=== PATIENT | female | born 1980 ===

== ENCOUNTER 2017-05-07 18:45 | Emergency (ER) | payer OTHER ==
[2017-05-07 19:43] VITALS: PULSE 70; RESP 18; TEMP 97.9
--- NOTE | 2017-05-07 19:51 | C.PDOC ---
History Of Present Illness 37 yo female come in for evaluation of Left knee pain gradually developed for past month. Pt reports, pain gradually worsen overtime, more in back of knee, non-radiating and worse with movement. Noted some swelling in medial aspect. Otherwise, pt denies known direct trauma or injury, fever, chills, denies deformity, weakness, sensory or vascular deficits to Left knee. Ambulate to EDm wears knee brace. Time Seen by Provider: 05/07/17 19:47 Chief Complaint (Nursing): Lower Extremity Problem/Injury History Per: Patient Onset/Duration Of Symptoms: Gradual Current Symptoms Are (Timing): Worse Past Medical History Reviewed: Historical Data, Nursing Documentation, Vital Signs Vital Signs: Last Vital Signs Temp 97.9 F 05/07/17 19:39 Pulse 70 05/07/17 19:39 Resp 18 05/07/17 19:39 BP 106/71 05/07/17 19:39 Pulse Ox 99 05/07/17 19:51 - Medical History PMH: No Chronic Diseases Surgical History: No Surg Hx Family History: States: No Known Family Hx - Social History Hx Alcohol Use: No Hx Substance Use: No - Immunization History Hx Tetanus Toxoid Vaccination: No Hx Influenza Vaccination: No Hx Pneumococcal Vaccination: No Review Of Systems Except As Marked, All Systems Reviewed And Found Negative. Constitutional: Negative for: Fever, Chills ENT: Negative for: Throat Pain Musculoskeletal: Positive for: Other (knee pain) Skin: Negative for: Bruising Neurological: Negative for: Weakness, Numbness Physical Exam - Physical Exam Appears: Well, Non-toxic, No Acute Distress Skin: Normal Color, Warm, No Rash, No Ecchymosis Extremity: Tenderness (moderate tenderness posterior aspect left knee, trace swelling noted medial aspect Left knee. Mild discomfort to Left knee flexion. NO neurovascular deficits, no clelulitis.), No Calf Tenderness, Capillary Refill (less than 2sec to left foot), No Deformity Neurological/Psych: Oriented x3, Normal Speech, Normal Motor, Normal Sensation, Normal Reflexes ED Course And Treatment O2 Sat by Pulse Oximetry: 99 - Other Rad Left knee X-Ray: Interpreted by Me, Viewed By Me Interpretation: mild DJD w/calcification Progress Note: On re-evaluation, pt is afebrile, hemodynamicaly stable. non- toxic. Ambulatory in ED with stable gait. Left knee; exam c/w knee arthralgia r/o arthritis. NO cellulitis, no neurovascular deficits, no calf tenderness. neurologicaly intact. Imaging review and appears without acute abnormalities. Pt has clinical findings c/w back strain. Analgesics offered, pt sts, " took Advil with mild improvement in pain". Pt advised to continue wear knee brace. ref. to f/u with Ortho in 2-3 days for re-eval. return to ED if any worsening or new changes. Disposition Counseled Patient/Family Regarding: Studies Performed, Diagnosis, Need For Followup, Rx Given - Disposition Referrals: [facility] [Outside] [facility] [Outside] [facility] [Outside] Disposition: HOME/ ROUTINE Disposition Time: 20:15 Condition: STABLE Additional Instructions: KNee brace Take medication as prescribed light duty to left knee Follow up with Orthopedist in 2-3 days for re-evaluation. Return to ED if any worsening or new changes. Prescriptions: Ibuprofen [Motrin Tab] 600 mg PO Q6 #20 tab Instructions: Arthralgia (ED), Knee Pain (ED) Forms: [facility] (Irish) Print Language: MALAWIAN - Clinical Impression Clinical Impression: Arthralgia of knee
[2017-05-07 20:44] VITALS: BP 110/68; O2SAT 98
--- NOTE | 2017-05-08 10:20 | RAD ---
PROCEDURE: Left Knee Radiographs. HISTORY: COMPARISON: None available. FINDINGS: BONES: No acute displaced fracture. Small suprapatellar and infrapatellar enthesophytes. Faint 3.2 x 2.3 cm centrally located sclerotic rounded opacity within the distal femur. JOINTS: No dislocation. JOINT EFFUSION: Moderate suprapatellar joint effusion. OTHER FINDINGS: None. IMPRESSION: Moderate suprapatellar joint effusion. Faint 3.2 x 2.3 cm centrally located sclerotic rounded opacity within the distal femur. Degenerative changes. Study has been marked for PA review.
== END 2017-05-07 20:45 | disposition home or self-care (01) ==
LOC: C.ER 18:45 → SUPCPDRO 18:45 → C.ER 20:45
DX: M25.562 Pain in left knee (principal)

== ENCOUNTER 2017-11-28 11:07 | Emergency (ER) | payer OTHER ==
[2017-11-28 11:10] VITALS: BMI 28.9
[2017-11-28 11:13] VITALS: BP 108/76; PULSE 72; RESP 18; TEMP 97.6; O2SAT 100
--- NOTE | 2017-11-28 11:59 | C.PDOC ---
History Of Present Illness 37 y/o female, w/PMhx of bilateral knee pain, presents to the ER for evaluation of bilateral thigh and bilateral knee pain which has been present for the past 3 months. Patient states that she was seen by her PMD. She reports that she had an MRI 1 month ago and she was diagnosed with arthritis, ref. to orhto " dont have insurance now for follow up". Patient denies taking pain medications. Pt denies fever, chills, skin changes, sore throat, denies deformity, redness, denies weakness, sensory or vascular deficits to B/L LEs, denies calf pain. Ambulate to Ed for evaluation, not in any apparent distress. Time Seen by Provider: 11/28/17 11:21 Chief Complaint (Nursing): Lower Extremity Problem/Injury History Per: Patient History/Exam Limitations: no limitations Current Symptoms Are (Timing): Still Present Severity: Moderate Past Medical History Reviewed: Historical Data, Nursing Documentation, Vital Signs Vital Signs: Last Vital Signs Temp 97.6 F 11/28/17 11:09 Pulse 72 11/28/17 11:09 Resp 18 11/28/17 11:09 BP 108/76 11/28/17 11:09 Pulse Ox 100 11/28/17 12:12 - Medical History PMH: Arthritis ( PER PATIENT) Surgical History: Family History: States: No Known Family Hx - Social History Hx Alcohol Use: No Hx Substance Use: No - Immunization History Hx Tetanus Toxoid Vaccination: No Hx Influenza Vaccination: No Hx Pneumococcal Vaccination: No Review Of Systems Except As Marked, All Systems Reviewed And Found Negative. Constitutional: Negative for: Fever, Chills Musculoskeletal: Positive for: Leg Pain (bilateral thigh pain, bilateral knee pain) Neurological: Negative for: Weakness, Numbness Physical Exam - Physical Exam Appears: Well, Non-toxic, No Acute Distress Skin: Normal Color, Warm, Dry, No Rash Head: Normacephalic Eye(s): bilateral: PERRL Nose: No Discharge Oral Mucosa: Moist Throat: No Erythema Neck: Trachea Midline, Supple Back: No CVA Tenderness Extremity: Normal ROM (B/L knees without difficulty or pain), Tenderness (mild B /L posterior knees tenderness.), No Calf Tenderness (B/L), No Deformity, No Swelling Neurological/Psych: Oriented x3, Normal Speech, Normal Motor, Normal Sensation, Normal Reflexes ED Course And Treatment O2 Sat by Pulse Oximetry: 100 (RA) Pulse Ox Interpretation: Normal Progress Note: On re-evaluation, pt is afebrile, hemodynamicaly stable. Non- toxic. Ambulatory in ED with stable gait. B/L Knees: mild posterior tenderness B/L, no deformity, no edema, no erythema. FAROM of B/L knees, no neurovascular deficits, no calf tenderness. MRI results of B/L knees review ( pts has copies) from 10/07/17, (+) B/L DJD, Bakers cyst L>R. Pt advised to F/u with Ortho in 2-3 days for re-eavl. return to Ed if any worsening or new changes. Disposition Counseled Patient/Family Regarding: Diagnosis, Need For Followup, Rx Given - Disposition Referrals: [facility] [Outside] Disposition: HOME/ ROUTINE Disposition Time: 11:56 Condition: STABLE Additional Instructions: Take medication as prescribed Follow up with Orthopedist at [facility] facility for further evaluation and treatment return if any new changes. Prescriptions: Prednisone [Deltasone] 40 mg PO DAILY #6 tablet traMADol [Ultram] 50 mg PO TID #7 tab Instructions: Hernandez's Cyst, Chronic Knee Pain Forms: [employer] (Latvian) Print Language: GUAMANIAN - Clinical Impression Clinical Impression: Arthralgia of knee - Scribe Statement The provider has reviewed the documentation as recorded by the Kunal Kemp Provider Attestation All medical record entries made by the Kunal were at my direction and personally dictated by me. I have reviewed the chart and agree that the record accurately reflects my personal performance of the history, physical exam, medical decision making, and the department course for this patient. I have also personally directed, reviewed, and agree with the discharge instructions and disposition.
== END 2017-11-28 12:12 | disposition home or self-care (01) ==
LOC: C.ER 11:07
DX: M25.562 Pain in left knee (principal); M25.561 Pain in right knee

== ENCOUNTER 2018-05-27 09:46 | Emergency (ER) | payer OTHER ==
[2018-05-27 09:46] VITALS: BMI 28.9
[2018-05-27 10:55] LABS: HCG,QUALITATIVE URINE NEGATIVE (NEGATIVE)
--- NOTE | 2018-05-27 11:12 | C.PDOC ---
History Of Present Illness 38 y/o female presents to ED c/o pelvic pain and vaginal bleeding since last night. Patient states she was seen at [facility] and recently diagnosed with bacterial vaginosis; reports she lozoya been compliant with medication (metrogel) and discharge resolved. Patient states she also had outpatient blood work done on 04/24/18, results unknown. She denies dysuria, nausea/vomiting, back pain, fever, or concern for STDs. LMP 05/14/18, patient reports she has regular menses. Time Seen by Provider: 05/27/18 09:56 Chief Complaint (Nursing): Female Genitourinary History Per: Patient History/Exam Limitations: no limitations Onset/Duration Of Symptoms: Days Current Symptoms Are (Timing): Still Present Severity: Mild Abnormal Vaginal Bleeding: Yes Past Medical History Reviewed: Historical Data, Nursing Documentation, Vital Signs Vital Signs: Last Vital Signs Temp 98.6 F 05/27/18 14:25 Pulse 76 05/27/18 14:25 Resp 18 05/27/18 14:25 BP 115/66 05/27/18 14:25 Pulse Ox 100 05/27/18 14:25 - Medical History PMH: Arthritis ( PER PATIENT) Surgical History: Family History: States: No Known Family Hx - Social History Hx Alcohol Use: No Hx Substance Use: No - Immunization History Hx Tetanus Toxoid Vaccination: No Hx Influenza Vaccination: No Hx Pneumococcal Vaccination: No Review Of Systems Constitutional: Negative for: Fever, Chills Gastrointestinal: Negative for: Nausea, Vomiting, Diarrhea Genitourinary: Positive for: Vaginal Bleeding, Pelvic Pain. Negative for: Dysuria, Vaginal Discharge Musculoskeletal: Negative for: Back Pain Skin: Negative for: Rash Physical Exam - Physical Exam Appears: Well, Non-toxic, No Acute Distress Skin: Normal Color, Warm, Dry, No Rash Oral Mucosa: Moist Neck: Supple Cardiovascular: Rhythm Regular Respiratory: Normal Breath Sounds, No Rales, No Rhonchi, No Wheezing Gastrointestinal/Abdominal: Bowel Sounds, Soft, Tenderness (Mild suprapubic TT{) , No Guarding, No Rebound, Other ((-) McBurney's, (-) Rovsig's) Back: No CVA Tenderness Neurological/Psych: Oriented x3 ED Course And Treatment O2 Sat by Pulse Oximetry: 100 (RA) Pulse Ox Interpretation: Normal - Other Rad transvaginal US X-Ray: Read By Radiologist Interpretation: bicornuate uterus, subserosal fibroid, left ovarian cyst, no torsion Progress Note: Blood work from 04/24/18 reviewed. UA, Upreg, and transvaginal US ordered and reviewed. Reevaluation Time: 14:10 Reassessment Condition: Improved (Patient reassessed, is resting comfortably. On exam, abdomen is soft and nontender. UA (+) for UTI - PO Ciprofloxacin given. Rxs for Cipro, Pyridium, Naprosyn given. Patient given copies of all studies, and was instructed to follow up with radiographer angiogram within 1 week. She understands she should return to ED if symptoms worsen.) Disposition Counseled Patient/Family Regarding: Studies Performed, Diagnosis, Need For Followup, Rx Given - Disposition Referrals: [facility] [Outside] Disposition: HOME/ ROUTINE Disposition Time: 14:15 Condition: STABLE Additional Instructions: FOLLOW UP AT [facility] WITHIN 1 WEEK USE MEDICATIONS DIRECTED RETURN TO ER IF YOUR SYMPTOMS WORSEN SEGUIMIENTO EN [facility] DENTRO DE 1 SEMANA USE MEDICAMENTOS SEGN LO INDICADO REGRESE A ER SI [facility] SNTOMAS FUNCIONAN Prescriptions: Ciprofloxacin [Cipro] 1 tab PO BID #14 tab Naproxen 375 mg PO BID PRN #20 tablet PRN Reason: pain Phenazopyridine [Pyridium] 100 mg PO TID #9 tab Instructions: Urinary Tract Infection, Adult (DC), Ovarian Cyst (DC), Uterine Fibroids (DC) Forms: [employer] (Citizen Of [place]) Print Language: OCCITAN - Clinical Impression Clinical Impression: UTI (urinary tract infection), Uterine fibroid, Irregular menstrual bleeding, Ovarian cyst - Scribe Statement The provider has reviewed the documentation as recorded by the Kunal Bullock All medical record entries made by the Kunal were at my direction and personally dictated by me. I have reviewed the chart and agree that the record accurately reflects my personal performance of the history, physical exam, medical decision making, and the department course for this patient. I have also personally directed, reviewed, and agree with the discharge instructions and disposition.
[2018-05-27 11:19] LABS: SQUAMOUS EPITHIAL 1 /hpf (0-5); URINE BACTERIA MOD (<OCC); URINE BILIRUBIN NEGATIVE (NEGATIVE); URINE BLOOD 2+ (NEGATIVE); URINE CLARITY Hazy (Clear); URINE COLOR Amber (YELLOW); URINE GLUCOSE (UA) NORMAL (Normal); URINE LEUKOCYTE ESTERASE 3+ Leu/uL (Negative); URINE PROTEIN NEGATIVE (NEGATIVE); URINE UROBILINOGEN NORMAL mg/dL (0.2-1.0); WBC CLUMPS FEW /hpf
[2018-05-27 12:57] VITALS: PULSE 76
--- NOTE | 2018-05-27 14:10 | US ---
Date of service: 05/27/2018 HISTORY: PELVIC PAIN, VAGINAL BLEEDING COMPARISON: None available. TECHNIQUE: Trans abdominal and transvaginal pelvic ultrasound was performed. FINDINGS: UTERUS: Measures 7.3 x 3.6 x 6.4 cm. The uterus is anteverted and by conduit. There is normal myometrial echotexture. There is a 1.3 x 0.7 x 1.2 cm subserosal fibroid in the lower uterine segment to the left. ENDOMETRIUM: Measures 5 mm mm in diameter in the right cornu and 4 mm in the left cornu. Normal in appearance. CERVIX: No cervical abnormality identified. RIGHT OVARY: Measures 2.7 x 1.8 x 2.1 cm. No solid mass. Normal flow. LEFT OVARY: Measures 4.1 x 2.6 x 4.0 cm. No solid mass. Normal flow. There is a 3.2 x 2.4 x 3.4 cm complicated cyst. FREE FLUID: No significant free fluid noted. OTHER FINDINGS: None. IMPRESSION: Bicornuate uterus. 1.3 x 0.7 x 1.2 cm subserosal fibroid in the lower uterine segment to the left. 3.2 x 2.4 x 3.4 cm complicated cyst in the left ovary. No evidence for torsion. Follow-up ultrasound in 3-6 month interval is recommended to assess stability/ resolution.
[2018-05-27 14:17] VITALS: O2SAT 100
[2018-05-27 14:30] VITALS: BP 115/66; RESP 18; TEMP 98.6
== END 2018-05-27 14:30 | disposition home or self-care (01) ==
LOC: C.ER 09:46
DX: N39.0 Urinary tract infection, site not specified (principal); N92.6 Irregular menstruation, unspecified; D25.2 Subserosal leiomyoma of uterus; N83.202 Unspecified ovarian cyst, left side